=== PATIENT | female | born 2000 | race Caucasian/White ===

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

== ENCOUNTER 2018-12-22 09:08 | Emergency (ER) | payer OTHER ==
[~2018-12-22] VITALS: Ht 167.6 cm; Wt 56.8 kg
[2018-12-22 09:17] VITALS: BP 127/86; Ht 167.6 cm; Wt 56.8 kg
== END 2018-12-22 11:04 | disposition home or self-care (01) ==
LOC: ED 09:08
DX: H66.91 Otitis media, unspecified, right ear (principal); J02.9 Acute pharyngitis, unspecified; G43.909 Migraine, unspecified, not intractable, without status migrainosus

== ENCOUNTER 2019-01-18 15:31 | Emergency (ER) | payer OTHER ==
[~2019-01-18] VITALS: Ht 167.6 cm; Wt 56.7 kg
[2019-01-18 15:36] VITALS: Ht 167.6 cm; Wt 56.7 kg
[2019-01-18 16:04] VITALS: BP 154/96
== END 2019-01-18 16:04 | disposition home or self-care (01) ==
LOC: ED 15:31
DX: J31.0 Chronic rhinitis (principal); J32.9 Chronic sinusitis, unspecified; G43.909 Migraine, unspecified, not intractable, without status migrainosus